=== PATIENT | male | born 1960 | race Caucasian/White ===

== ENCOUNTER 2019-09-02 14:57 | Emergency (ER) | payer OTHER ==
[~2019-09-02] VITALS: Ht 190.5 cm; Wt 118.8 kg
[2019-09-02 15:00] VITALS: Ht 190.5 cm; Wt 118.8 kg
[2019-09-02 15:35] LABS: BASOPHIL % 0.8 % (0-2); PLATELET COUNT 227 x10^3mcL (130-400); RED CELL DISTRIBUTION WIDTH 13.8 % (11.5-14.5)
[2019-09-02 15:48] LABS: CARBON DIOXIDE 27.1 mmol/L (21-32); CHLORIDE SERUM 95 mmol/L (98-107); GLUCOSE SERUM 98 mg/dL (74-106); POTASSIUM SERUM 3.7 mmol/L (3.5-5.1); SODIUM SERUM 137 mmol/L (136-145)
[2019-09-02 15:49] LABS: CALCIUM 8.4 mg/dL (8.5-10.1); GFR1 > 60 mL/min
[2019-09-02 16:04] LABS: BILIRUBIN TOTAL 1.39 mg/dL (0.20-1.00)
[2019-09-02 16:05] LABS: ALKALINE PHOSPHATASE 94 U/L (46-116); ALT/SGPT 43 U/L (16-63); AST/SGOT 44 U/L (15-37)
[2019-09-02 17:54] LABS: AMPHETAMINE QUAL UR NONE DETECTED (See below)
[2019-09-02 19:13] VITALS: BP 158/92
== END 2019-09-02 19:13 | disposition home or self-care (01) ==
LOC: ED 14:57
PROVIDERS: Specialist
DX: F10.239 Alcohol dependence with withdrawal, unspecified (principal); E86.0 Dehydration
CPT/HCPCS: G0480; J2060; J3475; J7030